=== PATIENT | male | born 1990 | race Caucasian/White ===

== ENCOUNTER 2024-08-05 08:18 | Outpatient (CLI) | payer OTHER, SELFPAY ==
--- NOTE | ~2024-08-05 | XR_ITS ---
EXAMINATION: XR abdomen/kub 1V DATE: 08/05/2024 08:41 INDICATION: Kidney stones. TECHNIQUE: A supine view of the abdomen on 2 radiographs was obtained. COMPARISON: CT abdomen and pelvis 08/05/2024 FINDINGS: There are no dilated loops of bowel. There are 4 mm and 2 mm stones in left kidney. IMPRESSION: 1. Left kidney stones. Reviewed, dictated and finalized at location A. IMPRESSION: 1. Left kidney stones.
--- NOTE | ~2024-08-05 | CT_ITS ---
EXAMINATION: CT abdomen pelvis wo con DATE: 08/05/2024 08:41 INDICATION: Kidney stones. TECHNIQUE: Computed tomography (CT) of the abdomen and pelvis was performed without intravenous contr ast. Automated exposure control and iterative reconstruction technique were employed. The dose-length product was 219.31 mGy-cm. COMPARISON: None. FINDINGS: The visualized portions of the lung bases demonstrate mild atelectasis. No pleural effusion . The heart size is normal. No pericardial effusion. The liver, gallbladder, spleen, pancreas, adrena l glands, and right kidney are normal. There are 2 mm and 4 mm stones in left kidney. The prostate is mildly enlarged. There are no dilated loops of bowel. The appendix is normal. There are no pathologi asia enlarged lymph nodes. There is no free intraperitoneal fluid. There is a right inguinal hernia containing fat. There is mild thoracic and lumbar spondylosis. IMPRESSION: 1. Nonobstructing left kidney stones. Reviewed, dictated and finalized at location A.
== END 2024-08-05 08:19 | disposition home or self-care (01) ==
LOC: MICIMG 08:19
PROVIDERS: PCP Urology; Visit Provider Urology
DX: Z87.442 Personal history of urinary calculi (principal); N20.0 Calculus of kidney
CPT/HCPCS: 74018; 74176

== ENCOUNTER 2025-06-24 14:40 | Outpatient (CLI) | payer OTHER, BC, SELFPAY ==
--- NOTE | ~2025-06-24 | XR_ITS ---
Exam: Abdomen 1V HISTORY: rt flank pain, BLOOD IN URINE COMPARISON: 08/05/2024 TECHNIQUE: Supine images of the abdomen FINDINGS: Bowel gas pattern is non-obstructive. There is no free air or deep sulci. 3 mm calculus projecting over the lower pole left kidney, consistent with CT examination performed ap proximately 7 minutes earlier. IMPRESSION: Nonspecific, nonobstructive bowel gas pattern. 3 mm calculus projecting over the lower pole of the left kidney, consistent CT examination performed approximately 7 minutes earlier Reviewed, dictated and finalized at location A.
--- NOTE | ~2025-06-24 | CT_ITS ---
CLINICAL INDICATION: Right flank pain COMPARISON: 08/05/2024. TECHNIQUE: Multiple contiguous axial images of the abdomen and pelvis were performed without the admi nistration of intravenous contrast The dose-length product (DLP) was 418.61 mGy-cm. Automated exposure control and iterative reconstruction technique were employed. FINDINGS/OBSERVATIONS: Visualized lower thorax: The bilateral lung bases are clear. The heart is of normal size, without pericardial effusion. Liver: The liver demonstrates homogeneous attenuation and is not enlarged. Gallbladder and biliary system: The gallbladder is decompressed, and otherwise unremarkable. Pancreas: Limited evaluation of the pancreas secondary to the lack of intravenous contrast. Spleen: The spleen demonstrates homogeneous attenuation and is not enlarged. Kidneys: 5 mm nonobstructing calculus projecting over the lower pole of the left kidney unchanged fro m prior. Interval resolution of the larger nonobstructing calculus within the upper pole of the left kidney se en on previous examination The remainder of the bilateral kidneys are otherwise unremarkable, without hydronephrosis or addition al renal calculi. Adrenal glands: Unremarkable. Gastrointestinal tract: Colonic diverticulosis without surrounding inflammatory change. Appendix: The air-filled appendix is of normal caliber (axial series, images 107 - 128). Vasculature: Unremarkable. Lymph nodes: Limited evaluation without intravenous contrast. Pelvic structures: The bladder is only minimally distended, and otherwise unremarkable. The prostate gland is not enlarged. Body wall and musculoskeletal: Small fat-containing umbilical hernia. No significant degenerative disease within the lower thoracic or lumbosacral spine. IMPRESSION: Nonobstructing left renal calculus, as detailed above. Reviewed, dictated and finalized at location A.
--- OUTSIDE RECORDS SUMMARY | 2025-06-24 14:43 | XMS_ITS | Clinical Summary ---
Author Organization [facility] Building [address] Address [address] [place] [address] Care Team Providers Care Belt Dresser Name Role Phone No, Physician Primary Care Provider Allergies No known active allergies Medications No known medications Active Problems Problem Noted Date Diagnosed Date Abrasion of forearm 05/24/2010 Surgical History Surgery Date Site/Laterality Comments ELBOW SURGERY Social History Tobacco Use Types Packs/Day Years Used Date Smoking Tobacco: Never Smokeless Tobacco: Never Personal Safety Answer Date Recorded Have you ever been in or are you currently in a harmful physical or emotional relationship or is someone making you feel afraid or unsafe? Denies 11/10/2023 Sex and Gender Information Value Date Recorded Sex Assigned at Not on file Legal Sex Male 9:01 AM [facility] Gender Identity Not on file Sexual Orientation Not on file Obstetrics History Last Filed Vital Signs Vital Sign Reading Time Taken Comments Blood Pressure 135/83 11/10/2023 1:00 PM [facility] Pulse 58 11/10/2023 1:00 PM [facility] Temperature 36.2 C (97.1 F) 11/10/2023 8:57 AM [facility] Respiratory Rate 18 11/10/2023 11:21 AM [facility] Oxygen Saturation 100% 11/10/2023 1:00 PM [facility] Inhaled Oxygen Concentration - - Weight 77.1 kg (170 lb) 11/10/2023 8:57 AM [facility] Height 172.7 cm (5' 8) 11/10/2023 8:57 AM [facility] Body Mass Index 25.85 11/10/2023 8:57 AM [facility]OT Plan of Treatment Health Maintenance Due Date Last Done Comments Depression Screening 1989 Hepatitis C Screening 1989 DTaP/Tdap/Td Vaccine (1 - Tdap) 2000 Varicella Vaccines (1 of 2 - 13+ 2-dose series) 2002 Regular Well Visit/Exam 18-64 2007 HPV Vaccines (1 - 3-dose SCD M series) 2016 Influenza Vaccine (#1) 2025 Hepatitis B Screening Completed 09/02/1998 , 07/30/1998 Pneumococcal vaccine <65 Aged Out No longer eligible based on patient's age to complete this topic Insurance [facility] CMR Care Teams Belt Dresser Relationship Specialty Start Date End Date No, Physician PCP - General 06/13/22
== END 2025-06-24 14:41 | disposition home or self-care (01) ==
PROVIDERS: Visit Provider Physician Assistant Medical
DX: R10.9 Unspecified abdominal pain (principal); N20.0 Calculus of kidney
CPT/HCPCS: 74018; 74176